=== PATIENT | female | born 1975 | race Caucasian/White ===

== ENCOUNTER → 2016-09-27 | Outpatient (REF) | payer BC ==
[2016-09-27 12:21] LABS: FREE T4 1.35 NG/DL (0.76-1.46)
== END ==
LOC: M LABDRAW1 11:39
PROVIDERS: ATTEND Physician Assistant Medical
DX: C73 Malignant neoplasm of thyroid gland (principal)

== ENCOUNTER → 2017-06-06 | Outpatient (REF) | payer BC ==
[2017-06-06 14:30] LABS: FREE T4 1.63 NG/DL (0.76-1.46)
== END ==
LOC: M LABDRAW1 10:49
PROVIDERS: ATTEND Physician Assistant Medical
DX: C73 Malignant neoplasm of thyroid gland (principal)

== ENCOUNTER → 2017-06-15 | Outpatient (REF) | payer BC | LOC: M LABDRAW1 14:58 | PROVIDERS: ATTEND Internal Medicine Endocrinology, Diabetes & Metabolism | DX: C73 Malignant neoplasm of thyroid gland (principal) ==

== ENCOUNTER → 2017-10-28 | Outpatient (REF) | payer BC | LOC: M SFHCLERA 16:41 | DX: J02.9 Acute pharyngitis, unspecified (principal) ==

== ENCOUNTER → 2017-11-06 | Outpatient (CLI) | payer BC | LOC: M LRY 12:43 | DX: J40 Bronchitis, not specified as acute or chronic (principal) | CPT/HCPCS: 71046 ==